=== PATIENT | male | born 1965 | race Caucasian/White ===

== ENCOUNTER 2020-05-09 10:26 | Emergency (ER) | payer BC ==
[~2020-05-09] VITALS: Ht 190.5 cm; Wt 128.0 kg
[2020-05-09] MEDS ORDERED: LIDOCAINE-MPF 1%, 5ML ONE (10:47)
[2020-05-09] MEDS ORDERED: LIDOCAINE-MPF 1%, 5ML INFIL ONE (11:00)
[2020-05-09] MEDS ORDERED: DIPH,PERTUSS(ACELL),TET VAC/PF 0.5 ML IM-VACC ONE ×2 (11:00→11:43)
[2020-05-09] MEDS ORDERED: BUPIVACAINE 0.25% ONE (11:52)
[2020-05-09] MEDS ORDERED: BUPIVACAINE/PF-EPI 0.25% 1:200K SQ ONE (12:00)
--- NOTE | 2020-05-09 12:02 | NUR ---
PT UPRIGHT ON GURNEY AWAKE & CALM, NAD/VSS, COMFORT MEASURES PROVIDED, CALL LIGHT WITHIN REACH.
[2020-05-09 13:05] VITALS: BP 156/67
--- NOTE | 2020-05-09 13:05 | NUR ---
PT REMAINS UPRIGHT ON GURNEY AWAKE & CALM, NAD/VSS, NO NEEDS AT THIS TIME, CALL LIGHT WITHIN REACH.
[2020-05-09] MEDS ORDERED: NEOSPORIN OINT. PKT 1 PACKET ONE (13:13)
--- NOTE | 2020-05-09 13:34 | NUR ---
Patient given discharge instructions and they have confirmed that they understand the instructions. Patient ambulatory with steady gait.
== END 2020-05-09 13:50 | disposition home or self-care (01) ==
LOC: ED 13:06
DX: S61.210A Laceration without foreign body of right index finger without damage to nail, initial encounter (principal); M79.645 Pain in left finger(s); X58.XXXA Exposure to other specified factors, initial encounter; Y93.89 Activity, other specified; Y92.69 Other specified industrial and construction area as the place of occurrence of the external cause; Y99.0 Civilian activity done for income or pay
CPT/HCPCS: 12042; 90471; 90715; 99284